=== PATIENT | male | born 1990 | race American Indian/Alaskan Native ===

== ENCOUNTER 2019-11-25 09:21 | Emergency (ER) | payer BC ==
[2019-11-25 09:32] VITALS: BP 121/79; PULSE 58; TEMP 97.3
--- NOTE | 2019-11-25 09:34 | PDOC ---
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 States he has had a chronic dry cough for about 1 month. Denies fever, chills. He is requesting COVID testing today. COVID-19 with associated symptoms of dry cough, nausea, vomiting, diarrhea, complicated by this/these comorbidities: none ROS: NEGATIVE: difficulty breathing, shortness of breath, chest pain, lightheadedness, dizziness, (+) nausea, (+) vomiting and diarrhea. Other 12 point ROS reviewed and negative. Exam: General: NAD, Well-Appearing, Awake, Alert Oriented x3. Vital signs stable. ENT: No rhinorrhea or nasal congestion. Lungs: no audible wheezes. Patient is able to speak in full sentences. Heart: HR: normal rate Neuro: Normal Gait, Cranial Nerves II through XII Grossly Intact. Skin: No obvious rashes, bruising. Color Normal Appearing. Assessment/Plan: Nausea vomiting and diarrhea, cough, Patient has a history of this/these comorbidities: [none], denies recent travel and known COVID exposure. Patient does meet testing criteria at this time. ASSESSMENT: Covid exposure. Treatment:COVID testing Temp Pulse Resp BP Pulse Ox 97.3 F L 58 L 17 121/79 100 11/25/19 09:29 11/25/19 09:29 11/25/19 09:29 11/25/19 09:11/25/19 09:29 Discharge Disposition - Diagnosis Viral illness - Discharge Dispostion Disposition: HOME Condition at time of disposition: Stable - Referrals - Patient Instructions Printed Discharge Instructions: [facility]-Coronavirus Instructions Additional Instructions: Your Discharge Instructions: You must call primary care physician within 24 hours to arrange follow-up. Return to the Emergency Department with any new, persistent or worsening symptoms, for fever, chills, SOB, dizziness or any other concerning changes that may occur. Recommend quarantine onto your testing results have been completed. - Post Discharge Activity
== END 2019-11-25 09:55 | disposition home or self-care (01) ==
LOC: JERFT 09:21
DX: J06.9 Acute upper respiratory infection, unspecified (principal); Z11.59 Encounter for screening for other viral diseases
CPT/HCPCS: 99282-25; U0003